=== PATIENT | female | born 1995 | race Two or more races ===

== ENCOUNTER 2024-05-14 15:43 | Outpatient (CLI) | payer OTHER | END 2024-05-14 15:44 | disposition home or self-care (01) | LOC: BICRAD 15:43 | DX: A15.9 Respiratory tuberculosis unspecified (principal) | CPT/HCPCS: 71046 ==

== ENCOUNTER 2025-06-09 08:21 | Outpatient (CLI) | payer OTHER | END 2025-06-09 08:22 | disposition home or self-care (01) | LOC: ULT 08:21 | PROVIDERS: ATTEND Internal Medicine | DX: K21.9 Gastro-esophageal reflux disease without esophagitis (principal); R11.0 Nausea; K80.20 Calculus of gallbladder without cholecystitis without obstruction; K76.0 Fatty (change of) liver, not elsewhere classified; Z79.899 Other long term (current) drug therapy | CPT/HCPCS: 76700 ==